=== PATIENT | male | born 1955 | race Caucasian/White ===

== ENCOUNTER 2017-02-02 07:00 | Day surgery (SDC) | payer BC ==
[~2017-02-02 07:00] MED LIST: Lactated Ringers 1,000 ML IV SCH
[2017-02-02] MEDS ORDERED: Propofol 200 MG/20 ML SDV ONE (07:35)
[2017-02-02] MEDS ORDERED: fentaNYL 100 MCG/2 ML SDV ONE (07:35)
[2017-02-02 09:52] VITALS: BP 102/69
--- NOTE | 2017-02-02 12:07 | OR ---
PREOPERATIVE DIAGNOSIS: Screening colonoscopy. POSTOPERATIVE DIAGNOSIS: Normal colonoscopic exam. PROCEDURE PROPOSED: Total flexible colonoscopy. PROCEDURE DONE: Total flexible colonoscopy. INDICATION: This is a 61-year-old gentleman, who comes in for recommended screening colonoscopy. He denies any symptomatology and he has a negative family history of colon cancer. TECHNIQUE: The patient was brought to the endoscopy suite, placed in left lateral decubitus position. He was sedated per [employer] with propofol. The flexible video colonoscope was then passed transanally and under visualization advanced to the cecum. Examination revealed a normal ascending, transverse, descending, sigmoid, and rectal colon. There were no signs of any diverticulosis, polyps, colitis, or any other abnormalities. The scope was then withdrawn. He tolerated procedure well. FINAL IMPRESSION: Essentially normal colonoscopic exam. PLAN: The patient was reassured. I felt he could wait 10 years before he needs a repeat colonoscopy. SCM: 02/02/2017 08:44:01 MODL: 02/02/2017 11:54:57 /[id number]
== END 2017-02-02 09:54 | disposition home or self-care (01) ==
LOC: VM.SDS 07:00
PROVIDERS: ATTEND Surgery
DX: Z12.11 Encounter for screening for malignant neoplasm of colon (principal); N40.1 Benign prostatic hyperplasia with lower urinary tract symptoms; Z98.890 Other specified postprocedural states; Z88.0 Allergy status to penicillin
CPT/HCPCS: 45378; J2704; J3010; J7120